=== PATIENT | male | born 1975 | race African-American/Black ===

== ENCOUNTER 2019-05-22 16:51 | Emergency (ER) | payer SELFPAY ==
[~2019-05-22] VITALS: Ht 175.3 cm; Wt 86.2 kg
--- NOTE | 2019-05-22 17:05 | NUR ---
ED Nurse Note: PT WALKED IN TO ER TODAY FROM HOME. AOX4. PT C/O MEDIAL RIGHT ANKLE PAIN, 06/02, AFTER HITTING IT AGAINST A METAL OBJECT TODAY. SWELLING NOTED TO MEDIAL ANKLE BUT NO OBVIOUS DEFORMITY. LIMITED ROM OF ANKLE BUT FULL ROM OF DIGITS, CIRCULATION AND SENSATION INTACT, CAP REFILL <2 SECONDS.
[2019-05-22] MEDS ORDERED: Tylenol #3 tab (300mg/30mg) PO ONE (17:15)
[2019-05-22] MEDS ORDERED: IBUPROFEN600 MG ORAL (17:48)
--- NOTE | 2019-05-22 17:48 | NUR ---
ED Nurse Note: PT LAYING PEACEFULLY IN BED IN NAD. AOX4. PRESCRIPTION AND DISCHARGE PAPERWORK EXPLAINED TO PT. PT VERBALIZES UNDERSTANDING AND ALL QUESTIONS ANSWERED. PRESCRIPTION AND DISCHARGE PAPERWORK GIVEN TO PT AND ID WRISTBAND REMOVED. PT EDUCATED ON PROPER USE OF CRUTCHES. PT ABLE TO DEMONSTRATE BACK AMBULATION WITH PROPER USE OF ASSISTIVE DEVICE. PT WALKED OUT OF ER WITH STEADY GAIT AND PROPER USE OF ASSISTIVE DEVICE WITH ALL BELONGINGS.
[2019-05-22 17:51] VITALS: BP 126/78
[2019-05-22] MEDS ORDERED: Bacitracin Oint UD TOPIC ONE ×2 (17:53→18:00)
--- NOTE | 2019-05-22 18:50 | Emergency Room Report ---
History of Present Illness General Chief Complaint: Lower Extremity Injury Source: Patient Present Illness HPI 44-year-old male presents ED for evaluation. [place] and when he was getting off the slide he banged his right ankle against some metal. States that there is bruising and swelling to the right ankle. Throbbing, 8 out of 10, nonradiating. Unable to bear weight. Denies any other injuries. States that he did have an ankle fracture 9 years ago. No other aggravating relieving factors. Denies any other associated symptoms Allergies: Coded Allergies: No Known Allergies (Unverified , 05/22/19) Patient History Past Medical History: none Past Surgical History: none Pertinent Family History: none Social History: Denies: smoking, alcohol use, drug use Immunizations: UTD Reviewed Nursing Documentation: PMH: Agreed; PSxH: Agreed Nursing Documentation-PMH Past Medical History: No Stated History Review of Systems All Other Systems: negative except mentioned in HPI Physical Exam Vital Signs Date Time Temp Pulse Resp B/P (MAP) Pulse Ox O2 Delivery O2 Flow Rate FiO2 05/22/19 16:58 98.1 107 18 131/77 (95) 95 Room Air Sp02 EP Interpretation: reviewed, normal General Appearance: no apparent distress, alert, GCS 15, non-toxic Head: normocephalic Eyes: bilateral eye normal inspection, bilateral eye PERRL ENT: normal ENT inspection Neck: normal inspection Respiratory: normal inspection Cardiovascular #1: normal inspection Gastrointestinal: normal inspection Rectal: deferred Genitourinary: no CVA tenderness Musculoskeletal: tender - R ankle Neurologic: alert, oriented x3, responsive, motor strength/tone normal, sensory intact, speech normal Psychiatric: normal inspection Skin: no rash Lymphatic: normal inspection Procedures Splinting Splinting : Consent: Verbal Pre-Made Type: OLMAN wrap Pre-Proc Neuro Vasc Exam: normal Post-Proc Neuro Vasc Exam: normal Patient Tolerated: Well Complications: None Medical Decision Making Diagnostic Impression: Primary Impression: Ankle injury Qualified Codes: S99.911A - Unspecified injury of right ankle, initial encounter Additional Impression: Drug-seeking behavior ER Course Hospital Course 44-year-old M presents to ED complaining of R ankle pain Differential diagnoses include: Fracture, dislocation, sprain, contusion Clinical course Patient placed on stretcher. After initial history and physical, I ordered pain medications and Xrays of R ankle Xrays prelim read shows no acute fracture/dislocation. placed in olman wrap, given crutches multiple times patient is requesting prescription for Tylenol with codeine or [place]. And without obvious fracture I have no indication to prescribe such medications. Charge to home with prescription for Motrin. Ice, elevation, weightbearing with crutches. Will provide orthopedic referrals Diagnosis - ankle injury, drug-seeking behavior Stable and discharged to home with prescription for Motrin. apply ice, keep elevated. weight bear as tolerated. Followup with PMD/ortho. Return to ED if symptoms recur or worsen Other X-Ray Diagnostic Results Other X-Ray Diagnostic Results : X-Ray ordered: R ankle # of Views/Limited Vs Complete: 3 View Indication: Pain EP Interpretation: Yes Interpretation: no dislocation, no soft tissue swelling, no fractures Impression: No acute disease Last Vital Signs Date Time Temp Pulse Resp B/P (MAP) Pulse Ox O2 Delivery O2 Flow Rate FiO2 05/22/19 17:51 98.3 92 17 126/78 99 Room Air Status: improved Disposition: HOME, SELF-CARE Condition: Stable Scripts Ibuprofen* (MOTRIN*) 600 Mg Tablet 600 MG ORAL Q8H PRN for For Pain, #30 TAB 0 Refills Prov: Kevan Null MD 05/22/19 Referrals: NOT CHOSEN IPA/,REFERRING (PCP) [facility] Open 24 hour /7 days a week by Appointment Only [address] [facility] [address] [facility] [address] Patient Instructions: Ankle Pain Kevan Null MD May 22, 2019 18:50
--- NOTE | 2019-05-23 11:13 | Diagnostic Imaging Report ---
Indication: Pain right ankle Comparison: None Findings: 3 views of the right ankle obtained. No acute fracture, malalignment, periostitis, or osteochondral defects are identified. Subchondral cyst formation and irregularity noted and anterior tibial plafond presumably degenerative in nature. There is soft tissue swelling present.. Impression: No acute findings Degenerative arthritis
== END 2019-05-22 17:48 | disposition home or self-care (01) ==
LOC: EMR 17:20
DX: S99.911A Unspecified injury of right ankle, initial encounter (principal); Z76.5 Malingerer [conscious simulation]; W22.8XXA Striking against or struck by other objects, initial encounter; Y92.830 Public park as the place of occurrence of the external cause
CPT/HCPCS: 99283